=== PATIENT | female | born 1995 | race Two or more races ===

== ENCOUNTER 2025-04-04 12:44 | Emergency (ER) | payer BC, MEDICAID ==
[~2025-04-04] VITALS: Ht 160 cm; Wt 93.4 kg
[2025-04-04 12:48] VITALS: BP 125/74
[2025-04-04 13:32] LABS: PLATELET COUNT (AUTO) 216 K/uL (179-408); RED BLOOD CELL COUNT(AUTO) 3.73 MIL/uL (3.63-4.92); RED CELL DISTRIBUTION WIDTH 12.9 % (12.3-17.7); WHITE BLOOD COUNT (AUTO) 9.4 K/uL (3.8-11.8)
[2025-04-04 13:48] LABS: CREATININE 0.6 mg/dL (0.6-1.3); SODIUM SERUM 138.0 mmol/L (136-145); UREA NITROGEN, BLOOD 8.0 mg/dL (7-18)
[2025-04-04 13:54] LABS: ASPARTATE AMINOTRANSFERASE 13.0 U/L (15-37); TOTAL PROTEIN, SERUM 6.3 g/dL (6.4-8.2)
[2025-04-04 14:25] VITALS: BP 125/74; TEMP 98.2; O2SAT 99
== END 2025-04-04 14:25 | disposition home or self-care (01) ==
LOC: ER 12:44
DX: O99.341 Other mental disorders complicating pregnancy, first trimester (principal); R42 Dizziness and giddiness; F41.0 Panic disorder [episodic paroxysmal anxiety]; Z90.49 Acquired absence of other specified parts of digestive tract; Z3A.01 Less than 8 weeks gestation of pregnancy
CPT/HCPCS: 36415; 85025; A4606; A4663